=== PATIENT | male | born 1955 | race Caucasian/White ===

== ENCOUNTER → 2018-03-19 | Outpatient (CLI) | payer BC, OTHER ==
[~2018-03-19] MED LIST: ALBUTEROL SULFATE 0.083% NEB 2.5 MG/3 ML AMPUL NEB ONE
--- NOTE | 2018-03-19 17:22 | Pulmonary Function Test ---
Pulmonary Function Test Date of Procedure:: 03/19/18 INDICATION:: Dyspnea Referring Provider: Ad Guan MD [employer] Sales Representative: Erika Miller [employer], [employer]S DEVELOPER - Report Spirometry: FVC 4.65 L 102% postbronchodilator 4.81 L 105% FEV1 2.20 L 60% postbronchodilator 2.35 L 64% FEV1/FVC % 47 postbronchodilator 49 predicted 79 FEF 25-75% 0.54 L 15% postbronchodilator 0.59 L 16% Lung Volume: Total lung capacity 6.45 L 94% Vital capacity 4.65 L 102% Inspiratory capacity 2.94 L FRC N2 3.51 L 95% ERV 0.89 L RV 1.80 L 73% RV/TLC % 28 predicted 38 Diffusion Capactity: Diffusion capacity 13.6 54% DLCO/VA 3.19 L 83% Impression: Severe obstructive ventilatory defect.(Slightly worse than the study done 2012) Insignificant response to bronchodilator therapy. This does not preclude a clinical trial of bronchodilator therapy. No restrictive ventilatory defect. No hyperinflation. No air-trapping. Moderate decrease in diffusion capacity.
== END ==
LOC: RT 07:02
PROVIDERS: ATTEND Family Medicine
DX: J44.9 Chronic obstructive pulmonary disease, unspecified (principal)
CPT/HCPCS: 94060; 94727; 94729